=== PATIENT | female | born 1940 | race Caucasian/White ===

== ENCOUNTER 2017-05-17 01:35 | Emergency (ER) | payer MEDICARE, OTHER ==
[~2017-05-17] VITALS: Ht 162.6 cm; Wt 56.2 kg
[~2017-05-17 01:35] MED LIST: ASPIRIN EC325 MG PO; CENTRUM SILVER1 EAC3 PO; CLINDAMYCIN HC300 MG PO; MAALOX ADVANCE770 ML PO; PEPCID20 MG PO; PREDNISONE20 MG PO
[2017-05-17] MEDS ORDERED: TUMS200 MG PO (01:46)
== END 2017-05-17 04:17 | disposition home or self-care (01) ==
LOC: ED 01:35
DX: K52.9 Noninfective gastroenteritis and colitis, unspecified (principal); K21.9 Gastro-esophageal reflux disease without esophagitis; Z88.5 Allergy status to narcotic agent; Z91.030 Bee allergy status; Z88.1 Allergy status to other antibiotic agents; Z88.0 Allergy status to penicillin; Z79.899 Other long term (current) drug therapy
CPT/HCPCS: 80053; 81001; 83690; 85025; 96374; 99284; J2405; J7030

== ENCOUNTER 2017-09-29 21:24 | Emergency (ER) | payer MEDICARE, OTHER ==
[~2017-09-29] VITALS: Ht 162.6 cm; Wt 56.2 kg
[~2017-09-29 21:24] MED LIST changes: +TUMS200 MG PO
[2017-09-30] MEDS ORDERED: ZOFRAN ODT4 MG PO (00:22)
--- NOTE | 2017-10-01 09:05 | NUR ---
CHW called patient and no answer, left a voicemail stated we need a call back as soon as possible in concerns with her health. CHW called the friend that is listed on contacts . stated she spoke with Leopoldo yesterday and does not know why she isn't returning our calls, will provide Leopoldo my contact cell for contact.
--- NOTE | 2017-10-01 09:13 | NUR ---
Patient friend called me back and stated patient told her yesterday on 09/30/17 she left the hospital because she was scared, because she is allergic to so many things she didnt want to get anything that could harm her. Patient family members have had issues in the past with allergic reactions to medications. Per "patient friend", patient will be trying an all liquid diet and will be researching the [facility] online. stated she is very concerned for her friend and urged her to come back to the ED. CHW suggested to to maybe accompany the patient to the ED for a support system.
== END 2017-09-30 00:38 | disposition left against medical advice (07) ==
LOC: ED 21:24
PROC: 0T9B70Z Drainage of Bladder with Drainage Device, Via Natural or Artificial Opening (ICD-10-PCS; principal; 2017-09-29)
DX: K56.609 Unspecified intestinal obstruction, unspecified as to partial versus complete obstruction (principal); Z88.5 Allergy status to narcotic agent; Z91.038 Other insect allergy status; Z91.030 Bee allergy status; Z88.7 Allergy status to serum and vaccine; Z88.0 Allergy status to penicillin; Z88.1 Allergy status to other antibiotic agents; Z88.8 Allergy status to other drugs, medicaments and biological substances; Z79.899 Other long term (current) drug therapy
CPT/HCPCS: 51701; 74176; 80053; 81001; 83690; 85025; 96361; 96374; 96376; 99284; J2405; J7040

== ENCOUNTER 2018-11-24 19:45 | Emergency (ER) | payer MEDICARE, OTHER ==
[~2018-11-24] VITALS: Ht 162.6 cm; Wt 58.5 kg
[~2018-11-24 19:45] MED LIST changes: +ZOFRAN ODT4 MG PO
--- OUTSIDE RECORDS SUMMARY | 2018-11-24 19:48 | XMS ---
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 Details: AMA CRITERIA MET - Group Notification CARE PROVIDERS There are no care providers on record at this time. Celestina has no Care Guidelines for this patient. E.DYesika VISIT COUNT (12 MO.) 1 [facility] TOTAL 1 NOTE: Visits indicate total known visits. ED/UCC VISIT TRACKING (12 MO.) 11/24/2018 19:45 [facility] COMPLAINT: - LEFT ARM CAT SCRATCH INPATIENT VISIT TRACKING (12 MO.) No inpatient visits to display in this time frame [id number]
[2018-11-24] MEDS ORDERED: DOXYCYCLINE HY100 MG PO (20:45)
== END 2018-11-24 21:02 | disposition home or self-care (01) ==
LOC: ED 19:45
DX: S51.832A Puncture wound without foreign body of left forearm, initial encounter (principal); Z90.710 Acquired absence of both cervix and uterus; Z88.0 Allergy status to penicillin; Z88.1 Allergy status to other antibiotic agents; Z88.5 Allergy status to narcotic agent; Z88.6 Allergy status to analgesic agent; Z91.030 Bee allergy status; Z88.8 Allergy status to other drugs, medicaments and biological substances; Z88.4 Allergy status to anesthetic agent; W55.03XA Scratched by cat, initial encounter
CPT/HCPCS: 99283

== ENCOUNTER 2018-11-24 21:32 | Emergency (ER) | payer MEDICARE, OTHER ==
[~2018-11-24] VITALS: Ht 162.6 cm; Wt 58.5 kg
[~2018-11-24 21:32] MED LIST changes: +DOXYCYCLINE HY100 MG PO
--- OUTSIDE RECORDS SUMMARY | 2018-11-24 21:34 | XMS ---
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 Details: AMA CRITERIA MET - [facility] - 2 Visits in 30 Days CARE PROVIDERS There are no care providers on record at this time. Celestina has no Care Guidelines for this patient. E.D. VISIT COUNT (12 MO[address] [facility]. TOTAL 2 NOTE: Visits indicate total known visits. ED/UCC VISIT TRACKING (12 MO.) 11/24/2018 21:33 [facility] TYPE: Emergency COMPLAINT: - MEDICATION REACTIO/CAT SCRATCH 11/24/2018 19:45 [facility] TYPE: Emergency COMPLAINT: - LEFT ARM CAT SCRATCH INPATIENT VISIT TRACKING (12 MO.) No inpatient visits to display in this time frame [id number]
== END 2018-11-24 23:37 | disposition home or self-care (01) ==
LOC: ED 21:32
DX: T36.4X5A Adverse effect of tetracyclines, initial encounter (principal); Z90.710 Acquired absence of both cervix and uterus; Z88.5 Allergy status to narcotic agent; Z91.030 Bee allergy status; Z88.7 Allergy status to serum and vaccine; Z88.0 Allergy status to penicillin; Z88.1 Allergy status to other antibiotic agents; Z88.4 Allergy status to anesthetic agent; Z88.8 Allergy status to other drugs, medicaments and biological substances
CPT/HCPCS: 96372; 99283-25; J1200

== ENCOUNTER 2022-06-14 14:12 | Emergency (ER) | payer MEDICARE, OTHER ==
[~2022-06-14] VITALS: Ht 162.6 cm; Wt 58.5 kg
--- OUTSIDE RECORDS SUMMARY | 2022-06-14 14:18 | XMS ---
PreManage Notification: NILESH MORALES Security Quality Compliance Coordinator Events No recent Security Events currently on file CRITERIA MET - Group Notification CARE PROVIDERS There are no care providers on record at this time. Celestina has no Care Guidelines for this patient. Care History Medical/Surgical 11/25/2018 [facility] - CHW CALLED PATIENT- LEFT A VOICEMAIL-NO PCP - SENT NO PCP LETTER [facility]: Visits indicate total known visits. ED/C VISIT TRACKING (12 MO.) 06/14/2022 14:12 [facility] [place] TYPE: Emergency COMPLAINT: - FALL INPATIENT VISIT TRACKING (12 MO.) No inpatient visits to display in this time frame [id number]
[2022-06-14] MEDS ORDERED: CLEOCIN HCL300 MG PO (19:24)
== END 2022-06-14 19:35 | disposition home or self-care (01) ==
LOC: ED 14:12
DX: L03.115 Cellulitis of right lower limb (principal); S70.01XD Contusion of right hip, subsequent encounter; K21.9 Gastro-esophageal reflux disease without esophagitis; Z88.5 Allergy status to narcotic agent; Z91.030 Bee allergy status; Z88.7 Allergy status to serum and vaccine; Z88.0 Allergy status to penicillin; Z88.1 Allergy status to other antibiotic agents; Z88.8 Allergy status to other drugs, medicaments and biological substances; Z79.899 Other long term (current) drug therapy; Z79.82 Long term (current) use of aspirin
CPT/HCPCS: 73502; 93971; 99284-25

== ENCOUNTER 2025-02-11 15:31 | Emergency (ER) | payer MEDICARE, OTHER ==
[~2025-02-11] VITALS: Ht 162.6 cm; Wt 56.5 kg
[~2025-02-11 15:31] MED LIST changes: +CLEOCIN HCL300 MG PO
--- OUTSIDE RECORDS SUMMARY | 2025-02-11 15:34 | XMS ---
PreManage Notification: NILESH MORALES Security Claims Support Specialist Events No recent Security Events currently on file CRITERIA MET - Group Notification CARE PROVIDERS There are no care providers on record at this time. Celestina has no Care Guidelines for this patient. Care History Medical/Surgical 11/25/2018 [facility] \R\- CHW CALLED PATIENT- LEFT A VOICEMAIL-NO PCP \R\- SENT NO PCP LETTER E.D. VISIT COUNT (12 MO.) 1 [facility] TOTAL 1 NOTE: Visits indicate total known visits. ED/UCC VISIT TRACKING (12 MO.) 02/11/2025 15:31 [facility] TYPE: Emergency COMPLAINT: - HEAD PAIN INPATIENT VISIT TRACKING (12 MO.) No inpatient visits to display in this time frame [id number]
[2025-02-11 18:32] VITALS: BP 167/87
== END 2025-02-11 18:32 | disposition home or self-care (01) ==
LOC: ED 15:31
DX: R55 Syncope and collapse (principal); R51.9 Headache, unspecified; K21.9 Gastro-esophageal reflux disease without esophagitis; Z79.82 Long term (current) use of aspirin; Z88.5 Allergy status to narcotic agent; Z91.038 Other insect allergy status; Z88.7 Allergy status to serum and vaccine; Z88.0 Allergy status to penicillin; Z88.1 Allergy status to other antibiotic agents
CPT/HCPCS: 70450; 99284-25

== ENCOUNTER 2025-05-26 17:55 | Emergency (ER) | payer MEDICARE, OTHER ==
[~2025-05-26] VITALS: Ht 162.6 cm; Wt 56.5 kg
--- OUTSIDE RECORDS SUMMARY | 2025-05-26 18:02 | XMS ---
PreManage Notification: NILESH MORALES Security Manager Quality Improvement Events No recent Security Events currently on file CRITERIA MET - Group Notification CARE PROVIDERS There are no care providers on record at this time. Celestina has no Care Guidelines for this patient. Care History Medical/Surgical 11/25/2018 [facility] \R\- CHW CALLED PATIENT- LEFT A VOICEMAIL-NO PCP \R\- SENT NO PCP LETTER E.D. VISIT COUNT (12 MO.) 2 [facility] TOTAL 2 NOTE: Visits indicate total known visits. ED/UCC VISIT TRACKING (12 MO.) 05/26/2025 17:55 [facility] TYPE: Emergency COMPLAINT: - HEART ISSUES 02/11/2025 15:31 [facility] TYPE: Emergency COMPLAINT: - HEAD PAIN DIAGNOSES: - Allergy status to narcotic agent - Allergy status to other antibiotic agents - Allergy status to penicillin - Allergy status to serum and vaccine - Gastro-esophageal reflux disease without esophagitis - Headache, unspecified - terminal block assembler (current) use of aspirin - Other insect allergy status - Syncope and collapse INPATIENT VISIT TRACKING (12 MO.) No inpatient visits to display in this time frame [id number]
[2025-05-26 18:17] LABS: BASOPHILS 0.6 % (0.1-1.2); EOSINOPHILS 0.8 % (0.7-5.8); LYMPHOCYTES 27.5 % (19.3-51.7); MCH 29.5 PG (25.6-32.2); MCHC 32.3 g/dL (32.2-35.5); MCV 91.3 fL (79.4-94.8); MONOCYTES 5.3 % (4.7-12.5); NEUTROPHILS 65.3 % (34.0-71.1); RBC 4.71 M/uL (3.93-5.22)
[2025-05-26 18:29] LABS: ALT (SGPT) 20.0 U/L (14-59); AST (SGOT) 16.0 U/L (15-37); GLOMERULAR FILTRATION RATE,EST 70.0 mL/min (>60); PROTEIN, TOTAL 7.0 g/dL (6.4-8.2); UREA NITROGEN 22.0 mg/dL (7-18)
== END 2025-05-26 20:30 | disposition home or self-care (01) ==
LOC: ED 17:55
PROVIDERS: Emergency Medicine
DX: R00.2 Palpitations (principal); K21.9 Gastro-esophageal reflux disease without esophagitis; Z88.5 Allergy status to narcotic agent; Z91.030 Bee allergy status; Z88.0 Allergy status to penicillin; Z88.1 Allergy status to other antibiotic agents
CPT/HCPCS: 36415; 80053; 83735; 84484; 85025; 99285